=== PATIENT | female | born 1990 | race Caucasian/White ===

== ENCOUNTER 2017-02-27 13:06 | Emergency (ER) | payer SELFPAY ==
[~2017-02-27] VITALS: Ht 154.9 cm; Wt 70.0 kg
[~2017-02-27 13:06] MED LIST: ACYC-1 PO; MAGN400T PO; POTA-243 PO
[2017-02-27 13:14] VITALS: BP 134/92; PULSE 73; RESP 15; TEMP 98.4; O2SAT 100
[2017-02-27] MEDS ORDERED: BACT800T5 PO (13:52)
--- NOTE | 2017-02-27 14:01 | PD ---
HPI Chief Complaint: Skin Problem Time Seen by Provider: 13:53 Travel History International Travel<30 days: No Contact w/Intl Traveler<30days: No Traveled to known affect area: No History of Present Illness HPI 27 year-old female presents to the emergency room for evaluation of abscess to her left medial elbow that started 1 week ago. It was a small pimple and increasingly got larger throughout the week. States last night it popped while she was sleeping and since then it has decreased in size and pain. She went to workout this morning and her racehorse trainer would not train her until she had it checked out. Patient denies fever, chills, nausea, and vomiting. Last tetanus was less than one year ago. Of note, she got a tattoo 3 weeks ago in the same location. [facility] Past Medical History Diminished Hearing: No Reproductive: Yes (HERPES) ?: Not Social History Alcohol Use: Yes (OCCAS. MIX DRINKS, BEER OR WINE) Tobacco Use: No Substance Use: No Allergies-Medications (Allergen,Severity, Reaction): Coded Allergies: No Known Allergies (Verified , 02/27/17) Reported Meds & Prescriptions Reported Meds & Active Scripts Active Bactrim DS (Sulfamethoxazole-Trimethoprim) 800-160 Mg Tab 1 Tab PO BID Mag-Ox 400 (Magnesium Oxide) 400 Mg Tab 400 Mg PO DAILY K-Dur (Potassium Chloride) 10 Meq Tabcr 10 Meq PO DAILY Reported Zovirax 800 Mg Tab (Acyclovir) 800 Mg Tab 800 Mg PO DAILY Review of Systems Except as stated in HPI: all other systems reviewed are Neg Physical Exam Narrative GENERAL: Well-nourished, well-developed female in no acute distress. Afebrile. Ambulatory. SKIN: Focused skin assessment warm/dry. There is an indurated area in the left medial elbow which measures about 2 cm in diameter. The wound is open and draining purulent discharge. There is a zone of inflammation around it but no lymphangitis. HEAD: Normocephalic. EYES: No scleral icterus. No injection or drainage. NECK: Supple, trachea midline. No JVD or lymphadenopathy. CARDIOVASCULAR: Regular rate and rhythm without murmurs, gallops, or rubs. RESPIRATORY: Breath sounds equal bilaterally. No accessory muscle use. PSYCHIATRIC: No delusional thought processes. No hallucinations. Data Data Last Documented VS Vital Signs Date Time Temp Pulse Resp B/P Pulse Ox O2 Delivery O2 Flow Rate FiO2 02/27/17 13:14 98.4 73 15 134/92 100 MDM Medical Decision Making Medical Screen Exam Complete: Yes Emergency Medical Condition: Yes Medical Record Reviewed: Yes Differential Diagnosis Abscess, folliculitis, cellulitis Narrative Course 27-year-old female presents to the emergency room with a spontaneously draining abscess to her left medial elbow that started 1 week ago. It began draining last night. Physical exam is reassuring. There is a 2 cm area of induration with spontaneous drainage and mild surrounding inflammation. No lymphangitis. Tender to palpation. No indication for incision and drainage at this time. Patient discharged with Bactrim and told to follow up with a PCP or return for worsening symptoms. She understands and agrees to plan. Diagnosis Primary Impression: Abscess Referrals: Primary Care Physician Patient Instructions: Abscess (ED), General Instructions Additional Instructions: Rest and drink plenty of fluids. Take Bactrim as directed, until gone. Follow up with a primary care physician. Return to emergency room for worsening symptoms, as discussed. Med/Other Pt SpecificInfo: Prescription(s) given Scripts Sulfamethoxazole-Trimethoprim (Bactrim DS)800-160 Mg Tab1 Tab PO BID #20 TAB Ref 0 Prov:Tess Melendez MD 02/27/17 Disposition: 01 DISCHARGE HOME Condition: Stable Ameena Salguero Feb 27, 2017 14:01
== END 2017-02-27 14:30 | disposition home or self-care (01) ==
LOC: PHED 13:06 → PHEFT 14:30
DX: L02.414 Cutaneous abscess of left upper limb (principal)
CPT/HCPCS: 99283